=== PATIENT | female | born 1960 | race Caucasian/White ===

== ENCOUNTER 2024-05-28 10:24 | Day surgery (SDC) | payer OTHER, MEDICARE, SELFPAY ==
[2024-05-26 10:42] LABS: % Basophils 0.8 % (0-2); % Eosinophils 10.9 % (0-6); % Immature Granulocytes 0.2 % (0-0.5); % Monocytes 16.2 % (1.7-9.3); % Neutrophils 57.9 % (42.2-75.2); Absolute Eosinophils 0.6 10^3/uL (0-0.7); Absolute Lymphocytes 0.7 10^3/uL (1.2-3.4); Absolute Monocytes 0.8 10^3/uL (0.1-0.6); Absolute Neutrophils 2.9 10^3/uL (1.4-6.5); Hemoglobin 9.5 g/dL (12.0-16.0); Mean Corp Hgb Conc. 31.7 g/dL (33.0-37.0); Mean Corpuscular Hgb 30.8 pg (27.0-31.0); Mean Corpuscular Volume 97.4 fL (81.0-99.0); Mean Platelet Volume 11.3 fL (7.4-10.4); Nucleated Red Blood Cells % 0 %; Platelet Count 121 10^3/uL (130-400); Red Blood Cell Count 3.08 10^6/uL (4.20-5.40); White Blood Cell Count 5.1 10^3/uL (4.8-10.8)
[2024-05-26 11:38] LABS: ALT (SGPT) 16 U/L (0-35); AST (SGOT) 28 U/L (14-36); Albumin 4.2 g/dl (3.5-5.0); Alkaline Phosphatase 65 U/L (38-126); Blood Urea Nitrogen 59 mg/dl (7-17); Calcium 10.8 mg/dl (8.4-10.2); Carbon Dioxide 28 mmol/L (22-30); Chloride 94 mmol/L (98-107); Glucose 86 mg/dl (70-99); Magnesium 3.2 mg/dl (1.6-2.3); Potassium 5.4 mmol/L (3.5-5.1); Sodium 134 mmol/L (135-145); Total Bilirubin 0.8 mg/dl (0.2-1.3); Total Protein 6.6 g/dl (6.3-8.2); eGFR 4.66
[2024-05-28 11:29] VITALS: BP 118/72
[2024-05-28 11:48] VITALS: BP 118/72
--- NOTE | 2024-05-28 13:49 | ITS.CL.PACE ---
Chief Projectionist - Pacemaker Implant
Pacemaker Implant
Procedure Report:
Date of Procedure: May 28, 2024
Patient : 1960
Procedure: Pacemaker generator change and pocket revision
Indication: The patient has significant pain from prior generator position and has had battery depletion since implant so presents for pocket revision and moving of the patient's system more medially and replacing the generator
�
Implants:
Pulse Generator: Medtronic; Model# W1 DR ; SN: [id number]
RA Lead: Medtronic; Model# 4076; SN: [id number]
RV Lead: Medtronic; Model# 4076; SN: [id number]
�
Technique: A time out was performed. The procedure site was identified. The patient was anesthetized by the anesthesia service. Preoperative sedation was administered. The patient was prepped and draped in the usual fashion. Local anesthetic was
applied to the left prepectoral subcutaneous tissue. A 3 inch incision was made 2.5 inches below the right clavicle. A subcutaneous pocket was created with blunt and sharp dissection and hemostasis controlled with Bovie cautery. There is no
evidence of infection or necrotic tissue in the pocket. The generator itself was somewhat mobile and in the right axilla towards the shoulder. We performed capsulectomy and mobilized the chronic leads and after determining stable parameters we
removed the chronic generator and attach the new generator to the chronic leads. Once the prior capsule was removed we extended the dissection plane medially towards the sternum just above the pectoral muscle below subcutaneous tissue. This
represented a more medial and superior pocket and the new generator was tied to the floor of the pectoral muscle. The leads were appropriately attached to the device. The pocket was irrigated with antibiotic solution. The device and leads were
placed in the pocket. The incision was closed in three layers with absorbable suture. The estimated blood loss was minimal. There were no complications.��
�
New generator: Medtronic model number W1 DR serial number [id number]
Explanted generator: Medtronic model number W1 DR serial number [id number] implanted March 08, 2021
Lead Analysis:
RA lead: P: 0.9 mV; Threshold: Underlying A-fib; Impedance: 342 ohms.
RV lead: R: 11.4 mV; Threshold: 0.75 V @ 0.5��ms; Impedance: 418 ohms.
�
Final Programming: VVIR 60-130 beats a minute
�
Conclusion: Uncomplicated Medtronic pacemaker implant.
�
Recommendation: Routine post pacemaker care.
�
[2024-05-28 14:01] VITALS: BP 109/76
[2024-05-28 14:16] VITALS: BP 125/68
[2024-05-28 14:31] VITALS: BP 120/59
== END 2024-05-28 15:13 | disposition home or self-care (01) ==
LOC: CATH 10:24
PROVIDERS: ATTENDING PHYSICIAN Internal Medicine Cardiovascular Disease; FAMILY PHYSICIAN Family Medicine; REFERRING PHYSICIAN Internal Medicine Cardiovascular Disease
DX: Z45.010 Encounter for checking and testing of cardiac pacemaker pulse generator [battery] (principal); I49.5 Sick sinus syndrome; I48.21 Permanent atrial fibrillation; I25.10 Atherosclerotic heart disease of native coronary artery without angina pectoris; I13.11 Hypertensive heart and chronic kidney disease without heart failure, with stage 5 chronic kidney disease, or end stage renal disease; N18.6 End stage renal disease; Z94.0 Kidney transplant status; Z99.2 Dependence on renal dialysis; J45.909 Unspecified asthma, uncomplicated; Z86.14 Personal history of Methicillin resistant Staphylococcus aureus infection; Z79.82 Long term (current) use of aspirin
CPT/HCPCS: 33228; 36415; 80053; 83735; 85025; 93005; C1785